=== PATIENT | male | born 1990 | race Caucasian/White ===

== ENCOUNTER 2020-04-02 05:19 | Emergency (ER) | payer OTHER ==
[~2020-04-02] VITALS: Ht 180.3 cm; Wt 97.5 kg
[2020-04-02 05:45] VITALS: BP 133/73
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
[2020-04-02] MEDS ORDERED: IBUPROFEN600 M1 ORAL (05:57)
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
--- NOTE | 2020-04-02 06:15 | NUR ---
Nurse Note: Pt with radiologist.
[2020-04-02 06:38] VITALS: BP 133/73
--- NOTE | 2020-04-02 06:38 | NUR ---
ER DISCHARGE NOTE: Pt back from radiology. Patient is cleared to be discharged per ERMD. Pt is aox4, on room air, with stable vital signs. Pt was given dc and prescription instructions. Pt was able to verbalize understanding, instructed pt to follow up [facility] within 3-5 days. Pt id band removed. Pt is able to ambulate with steady gait. Pt took all belongings.
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
== END 2020-04-02 06:38 | disposition home or self-care (01) ==
LOC: EMR 06:01
DX: S16.1XXA Strain of muscle, fascia and tendon at neck level, initial encounter (principal); V43.62XA Car passenger injured in collision with other type car in traffic accident, initial encounter; Y92.410 Unspecified street and highway as the place of occurrence of the external cause
CPT/HCPCS: 72052; 99283